=== PATIENT | male | born 1980 | race Caucasian/White ===

== ENCOUNTER 2017-11-25 19:44 | Emergency (ER) | payer SELFPAY ==
[~2017-11-25] VITALS: Ht 175.3 cm; Wt 72.0 kg
[~2017-11-25 19:44] MED LIST: DICL75 PO
[2017-11-25 19:54] VITALS: BP 150/98; PULSE 93; RESP 18; TEMP 98.6; O2SAT 95
[2017-11-25] MEDS ORDERED: LIDOCAINE 1%/EPINEPHrine 1:100,000 SOLN 30 ML VIAL ONE (20:08)
[2017-11-25] MEDS ORDERED: TETANUS/DIPHTHERIA TOXOID ADULT 0.5 ML VIAL IM ONE (20:15)
[2017-11-25] MEDS ORDERED: LIDOCAINE 1%/EPINEPHrine 1:100,000 SOLN 20 ML VIAL INFIL ONE (20:15)
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
[2017-11-25] MEDS ORDERED: DICL75TA PO (20:16)
[2017-11-25] MEDS ORDERED: BACT800T5 PO (20:16)
[2017-11-25] MEDS ORDERED: SULFAMETHOXAZOLE-TRIMETHOPRIM DS 800-160 MG TAB PO ONE (20:30)
== END 2017-11-25 21:12 | disposition home or self-care (01) ==
LOC: PHEFT 19:44
DX: S81.812A Laceration without foreign body, left lower leg, initial encounter (principal); V29.88XA Motorcycle rider (driver) (passenger) injured in other specified transport accidents, initial encounter; Z23 Encounter for immunization
CPT/HCPCS: 12002; 90471; 90714